=== PATIENT | female | born 1990 | race Caucasian/White ===

== ENCOUNTER 2021-11-29 17:17 | Emergency (ER) | payer OTHER ==
[2021-11-29 17:30] VITALS: BP 128/80; PULSE 92; RESP 18; TEMP 98.1; BMI 26.5
[2021-11-29] MEDS ORDERED: IBUPROFEN 600 MG TABLET (FP) PO ONE ×2 (18:08→18:12)
== END 2021-11-29 18:52 | disposition home or self-care (01) ==
LOC: JERFT 17:17
DX: S80.212A Abrasion, left knee, initial encounter (principal); S80.02XA Contusion of left knee, initial encounter; S82.015A Nondisplaced osteochondral fracture of left patella, initial encounter for closed fracture; W01.0XXA Fall on same level from slipping, tripping and stumbling without subsequent striking against object, initial encounter; Y93.02 Activity, running
CPT/HCPCS: 73562-TC-LT-FY; 99283-25

== ENCOUNTER 2021-12-02 17:17 | Emergency (ER) | payer OTHER ==
[2021-12-02 17:23] VITALS: BP 146/86; PULSE 62; RESP 18; TEMP 97; BMI 26.3
== END 2021-12-02 18:44 | disposition home or self-care (01) ==
LOC: JERFT 17:17
DX: S82.022A Displaced longitudinal fracture of left patella, initial encounter for closed fracture (principal); Y99.9 Unspecified external cause status
CPT/HCPCS: 99281-25

== ENCOUNTER 2023-01-23 15:46 | Emergency (ER) | payer OTHER ==
[2023-01-23 15:58] VITALS: BP 134/82; PULSE 108; RESP 18; TEMP 98; BMI 27.2
[2023-01-23 17:11] LABS: EPI CELLS >36 /uL (0-25.1); HYALINE CASTS 1 /uL (0-3.1); URINE APPEARANCE CLOUDY; URINE BACTERIA >9,000 /uL (0-1359); URINE BILIRUBIN NEGATIVE (NEGATIVE); URINE COLOR YELLOW; URINE GLUCOSE (UA) NEGATIVE (NEGATIVE); URINE KETONE TRACE (NEGATIVE); URINE LEUK ESTERASE 1+ (NEGATIVE); URINE NITRITE NEGATIVE (NEGATIVE); URINE PROTEIN NEGATIVE (NEGATIVE); URINE WBC 67 /uL (0-25.8)
[2023-01-23 17:13] LABS: YEAST NEGATIVE (NEGATIVE)
[2023-01-23 17:49] LABS: BASO % 0.5 % (0-2.0); EOS % 1.6 % (0-4.5); HEMATOCRIT 35.9 % (32.4-45.2); HEMOGLOBIN 12.5 GM/dL (10.7-15.3); LYMPH % 21.2 % (8-40); MCH 30.6 pg (25.7-33.7); MCHC 34.6 g/dl (32.0-36.0); MEAN CELL VOLUME 88.3 fl (80-96); MEAN PLT VOLUME 9.5 fl (7.5-11.1); MONO % 5.2 % (3.8-10.2); NEUT % 71.5 % (42.8-82.8); PLATELET COUNT 248 10^3/uL (134-434); RBC 4.07 M/mm3 (3.60-5.2); RDW 13.1 % (11.6-15.6); WHITE BLOOD COUNT 8.5 K/mm3 (4.0-10.0)
[2023-01-23 17:55] LABS: INR 1.11 (0.83-1.09); PROTHROMBIN TIME (PATIENT) 12.9 SEC (9.7-13.0)
[2023-01-23 17:57] LABS: ACTIVATED PTT 36.2 SECONDS (25.2-36.5)
[2023-01-23 18:06] LABS: POTASSIUM 3.7 mmol/L (3.5-5.1)
[2023-01-23 18:08] LABS: CALCIUM 8.6 mg/dL (8.5-10.1)
[2023-01-23 18:10] LABS: BLOOD UREA NITROGEN 11.3 mg/dL (7-18)
[2023-01-23 18:12] LABS: CREATININE 0.7 mg/dL (0.55-1.3)
== END 2023-01-23 22:06 | disposition home or self-care (01) ==
LOC: JERFT 15:46 → JER 15:46 → JERFT 22:06
DX: O20.9 Hemorrhage in early pregnancy, unspecified (principal); O23.91 Unspecified genitourinary tract infection in pregnancy, first trimester; R82.71 Bacteriuria; O26.891 Other specified pregnancy related conditions, first trimester; R10.30 Lower abdominal pain, unspecified; Z3A.00 Weeks of gestation of pregnancy not specified
CPT/HCPCS: 36415; 76817-TC; 80048; 81003; 84702; 84703; 85025; 85610; 85730; 86850; 86900; 86901; 87086; 87186; 99284-25

== ENCOUNTER 2023-01-25 17:25 | Emergency (ER) | payer OTHER ==
[2023-01-25 17:35] VITALS: BP 111/70; PULSE 63; RESP 16; TEMP 98.8; BMI 27.2
== END 2023-01-25 19:31 | disposition home or self-care (01) ==
LOC: JERFT 17:25
DX: O20.0 Threatened abortion (principal)
CPT/HCPCS: 36415; 84702; 99283-25

== ENCOUNTER 2023-04-11 04:58 | Emergency (ER) | payer OTHER ==
[2023-04-11 05:06] VITALS: BP 131/87; PULSE 115; RESP 18; TEMP 98.1; BMI 25.6
== END 2023-04-11 07:46 | disposition left against medical advice (07) ==
LOC: JER 04:58
DX: T74.11XA Adult physical abuse, confirmed, initial encounter (principal)
CPT/HCPCS: 84703; 99283-25